=== PATIENT | male | born 1945 | race Caucasian/White ===

== ENCOUNTER → 2020-12-16 13:23 | Outpatient (CLI) | payer MEDICARE, SELFPAY ==
--- NOTE | 2020-12-16 13:30 | DI.CT.S_ITS ---
PROCEDURE: CT LUMBAR SPINE WO CON INDICATIONS: Other spondylosis with radiculopathy, lumbosacral TECHNIQUE: Noncontrast 3 mm thick sections acquired from the T12 level to the sacrum. Sagittal and coronal reformats were constructed. Additional 0.8 mm axial sections were performed through the lumbar spine. For radiation dose reduction, the following was used: automated exposure control. COMPARISON: [facility], CT, CT LUMBAR SPINE WITHOUT CONTRAST, 09/19/2020, 9:03. [facility], CR, XR LUMBAR SPINE 2 OR 3 VIEWS, 07/30/2020, 7:33. FINDINGS: Image quality: Excellent. Bones: There is normal bony alignment. No acute vertebral body compression fractures. No suspicious lytic or blastic bony lesions. No pars defects. T11-T12: Moderate loss of disc height is seen. Vacuum disc phenomenon is seen at this level. Moderate generalized disc bulge is seen. Bridging anterior osteophytes are seen. Moderate bilateral neural foraminal narrowing is seen. Mild central canal narrowing is seen. T12-L1: No significant abnormality is seen. L1-L2: There is mild loss of disc height. Moderate generalized disc bulge is seen. [facility] bilateral neural foraminal narrowing is seen. No significant central canal narrowing can be seen. L2-L3: Mild loss of disc height is seen. Bridging anterior/left osteophytes are seen. At least moderate disc bulge is seen. There is at least moderate bilateral neural foraminal narrowing seen, left worse than right. Mild to moderate central canal narrowing is seen. L3-L4: There is mild loss of disc height seen. There is at least moderate disc bulge seen. Mild facet joint hypertrophy is seen. Moderate to severe bilateral neural foraminal narrowing can be seen, left worse than right. Moderate central canal narrowing is seen. L4-L5: There is mild loss of disc height seen. At least moderate disc bulge is seen at this level. Partially bridging endplate osteophytes are seen on the left. There is moderate to severe bilateral neural foraminal narrowing seen at this level. Mild central canal narrowing is seen. L5-S1: Moderate loss of disc height is seen. Vacuum disc phenomenon is seen at this level. There is moderate to severe bilateral neural foraminal narrowing seen. No central canal narrowing is seen. Prior right hemilaminectomy change can be seen. Soft tissues: No retroperitoneal masses or hematomas. Visualized aorta is normal in caliber. Atherosclerotic calcification is noted. A small hiatal hernia is incidentally noted. A normal appendix is incidentally noted. IMPRESSION: Multiple levels of lumbar spine degenerative change are seen, which are not significantly progressed compared to the recent prior lumbar spine CT. Incidental note is made of: Small hiatal hernia Dictated by: Deshaun Kearney M.D. on 12/16/2020 at 14:59 Approved by: Deshaun Kearney M.D. on 12/16/2020 at 15:04
== END ==
PROVIDERS: Referring Provider Orthopaedic Surgery Orthopaedic Surgery of the Spine; Visit Provider Orthopaedic Surgery Orthopaedic Surgery of the Spine
DX: M47.27 Other spondylosis with radiculopathy, lumbosacral region (principal); M47.26 Other spondylosis with radiculopathy, lumbar region; K44.9 Diaphragmatic hernia without obstruction or gangrene
CPT/HCPCS: 72131

== ENCOUNTER → 2021-01-31 09:48 | Outpatient (CLI) | payer MEDICARE, SELFPAY ==
[2021-01-31 10:56] LABS: Add Manual Diff / Slide Review NO; Basophils Absolute Auto 0 /uL (0-100); Basophils Percent Auto 0.6 % (0-2); Eosinophils Absolute Auto 200 /uL (0-450); Eosinophils Percent Auto 3.4 % (2-4); Hematocrit 38.3 % (41-53); Hemoglobin 12.8 g/dL (13.5-17.5); Lymphocytes Absolute Auto 1300 /uL (1100-4500); Lymphocytes Percent Auto 17.9 % (25-40); Mean Corpuscular HGB Conc 33.5 % (30-36); Mean Corpuscular Hemoglobin 28.4 PG (26-34); Mean Corpuscular Volume 84.9 fL (80-100); Monocytes Absolute Auto 500 /uL (0-900); Monocytes Percent Auto 6.8 % (3-14); Neutrophils Absolute Auto 5000 /uL (1500-7000); Neutrophils Percent Auto 71.3 % (50-75); Platelet Count 206 X10^3/uL (150-400); Red Blood Cell Count 4.51 X10^6/uL (4.5-5.9)
[2021-01-31 11:27] LABS: Hemoglobin A1C% w Est Avg Glu 5.9 % (4.0-6.0)
[2021-01-31 13:15] LABS: Appearance Urine UA CLEAR; Bilirubin Urine UA NEGATIVE (NEGATIVE); Color Urine UA YELLOW; Glucose Urine UA NEGATIVE (Negative); Ketones Urine UA NEGATIVE (NEGATIVE); Leukocyte Esterase Urine UA NEGATIVE (NEGATIVE); Nitrite Urine UA NEGATIVE (Negative); Occult Blood Urine UA TRACE-LYSED (Negative); Protein Urine UA NEGATIVE (Negative); Specific Gravity Urine UA <=1.005 (1.000-1.035); Urobilinogen Urine UA 0.2 E.U./dL (0.2); pH Urine UA 6.5 (4.5-8.0)
[2021-01-31 13:30] LABS: BUN Creatinine Ratio 15.8 (6-22); Blood Urea Nitrogen 12 mg/dL (9-20); Calcium 9.5 mg/dL (8.4-10.2); Carbon Dioxide 27 mmol/L (22-32); Chloride 105 mmol/L (98-107); Estimated Glomerular Filt Rate > 60.0 mL/min (>60); Glucose 99 mg/dL (80-110); HEMOLYSIS < 15 (0-50); Potassium 4.7 mmol/L (3.4-5.1); Sodium 140 mmol/L (137-145)
[2021-01-31 13:32] LABS: Bacteria Urine None Seen; Culture Indicated Urine Cult Not Indicated; RBC Urine 0-1/HPF (0-5/HPF); Squamous Epithelial Cell Urine 0-1 /HPF (0-5/HPF); WBC Urine 0-1/HPF (0-5/HPF)
== END ==
PROVIDERS: Referring Provider Orthopaedic Surgery Orthopaedic Surgery of the Spine; Visit Provider Orthopaedic Surgery Orthopaedic Surgery of the Spine
DX: Z01.818 Encounter for other preprocedural examination (principal); R73.9 Hyperglycemia, unspecified; Z01.812 Encounter for preprocedural laboratory examination; N39.0 Urinary tract infection, site not specified
CPT/HCPCS: 36415; 80048; 81001; 83036; 85025; 93005; 93010

== ENCOUNTER → 2021-02-10 10:37 | Outpatient (CLI) | payer MEDICARE, SELFPAY ==
[2021-02-10 14:35] LABS: COVID19 -Nasal RAPID Negative (Negative)
== END ==
PROVIDERS: Referring Provider Nurse Practitioner Family; Visit Provider Nurse Practitioner Family
DX: Z20.822 Contact with and (suspected) exposure to COVID-19 (principal); Z01.812 Encounter for preprocedural laboratory examination
CPT/HCPCS: 87635; C9803

== ENCOUNTER 2021-02-12 06:20 | Inpatient (IN) | payer MEDICARE, SELFPAY ==
[2021-02-06 08:14] VITALS: BMI 25.1
[2021-02-12] VITALS (16 sets, daily range): BP systolic 119–163; BP diastolic 46–98; PULSE 79–107; RESP 10–18; TEMP 36.1–37.1; O2SAT 93–99; BMI 25.4
--- NOTE | 2021-02-12 | DI.RAD.S_ITS ---
PROCEDURE: XR LUMBAR SPINE 2-3V INDICATIONS: L3-4 L4-5 TLIF TECHNIQUE: 2 views of the lumbar spine were acquired. COMPARISON: [facility], CT, CT LUMBAR SPINE WO CON, 12/16/2020, 13:33. [facility], RF, LUMBAR TRANSFORAMINAL JED, 10/16/2020, 14:30. FINDINGS: 2 submitted intraoperative fluoroscopic images demonstrates posterior/interbody fusion at the L3-L4 and L4-L5 level with posterior fixation hardware and intervertebral disc spacers in expected position. IMPRESSION: Intraoperative fluoroscopic images demonstrating posterior/interbody fusion L3-L4 and L4-L5. Dictated by: Raúl FONTAINE Interpreted: Susan Bhatia MD on 02/12/2021 at 11:48 Transcribed by: SILAS on 02/12/2021 at 11:49 Approved by: Susan Bhatia M.D. on 02/12/2021 at 13:09
[2021-02-12] MEDS: ACETAMINOPHEN 325 MG TABLET 975 MG PO (07:23)
[2021-02-12] MEDS: LACTATED RINGERS 1,000 ML 42 ML IV ×2 (07:23→09:55)
--- NOTE | 2021-02-12 07:42 | PM.PREOP ---
Pre-operative Note COVID-19 COVID-19 status: Negative Result date/Date tested (Pos, Neg/Pending): 02/10/21 Interval Note History & Physical reviewed/Exam performed by Physician: Yes Changes to H&P: No
[2021-02-12] MEDS: CEFAZOLIN 1 GM VIAL 2 GM IV ×3 (08:07→23:38)
--- NOTE | 2021-02-12 08:42 | SUR.OPER ---
Prone on spine table, head in foam head support, padded chest and pelvic supports, gel pad at knees, lower legs supported by pillows; nipples, genitalia and toes free of pressure, gel pad placed between heels, arms secured on foam padded arm boards at <90 degrees abduction. Tape over blanket at thigh secured to table.
[2021-02-12] MEDS: BUPIVACAINE LIPOSOME 266 MG/20 ML VIAL INJ (08:50)
[2021-02-12] MEDS: BUPIVACAINE 0.25% (PF) VIAL 30 ML INJ (08:52)
[2021-02-12] MEDS: EPINEPHrine 1 MG/ML 0.15 MG SUBCUT (08:53)
--- NOTE | 2021-02-12 11:57 | P.OP_ITS ---
Operative Date/Time/Diagnoses Date of procedure: 02/12/21 Time of procedure: 08:00 Pre-op diagnosis: 1. L3-4, L4-5 spinal stenosis 2. L3-4, L4-5 spondylosis with radiculopathy Post-op diagnosis: same Procedure & Clinicians Procedure: 1. LL3-4, L4-5 Postero-lateral and posterior interbody fusion 2. L3-4, L4-5 interbody cage placement. 3. L3-4, L4-5 decompressive laminectomy with bilateral facetecomies 4. L3-4, L4-5 Posterior segmental instrumentation 5. Clements of bone marrow from iliac crest 6. Utilization of microsurgical technique and operating microscope 7. Robotic navigation assisted surgery Same procedure as scheduled: Yes Indications: Patient has been having chronic back pain and worsening lumbar radiculopathy. Patient failed multiple conservative management with worsening pain weakness and numbness in her lower extremity. Patient has been having difficulty performing activity of daily living. After discussing risks benefits of treatment options, patient elected proceed with surgery. Surgeon: Yeny Wayne Core Cutter: Thien Emanuel Click Yes if Unassisted: No Anesthesia Type: General Operative Notes Closure Type: primary Specimen(s): none sent Prosthetic devices, grafts, tissues, transplants, or devices: Globus CREO MIS screws, Rise cages Applied: catheter Estimated Blood Loss (mL): 100 Blood products transfused: none Procedure in detail: Patient was seen in the preoperative area. Risks and benefits of the surgery was discussed with the patient. Informed consent was obtained from the patient and placed in the chart. Surgical site was marked. Patient was taken to the operative room. General anesthesia was administered. Prophylactic antibiotic was given to the patient less than 30 min before the incision was made. Patient was placed into a prone position on the Aditya tab le. Patient's back was then prepped and draped in the sterile fashion. Time-out was performed at this time. After patient was prepped and draped, patient's PSIS was palpated and marked bilaterally. Small 1 cm incision was made over the PSIS for placement of the reference probes. Two trocar was placed into the PSIS 1 on each side. The reference probe was attached to the trocar of the reference apparatus. At this time the C-arm imaging was used to confirm AP and lateral of L3, L4-L5 vertebrae and merged the C-arm imaging using the Nexterra robotic navigation system with the CT of the lumbar spine. After successful merging was completed and confirmed, skin marker was used to laurent out the skin incision using the Nexterra robotic arm. Bilateral incision was made at this time. Pre templated trajectory was used and guided using the Nexterra robotic navigation system for bilateral L3 L4, L5 pedicle screw placement. This was done by using the robotic arm to guide the high-speed bur to make a cortical entry point. Next a drill was placed also using the robotic arm and guided using the navigation system drilling partially through bilateral L3, L4, L5 pedicles. Next L3, L4, L5 pedicle screws it was pre templated and measured was placed onto the power otr owner operator truck driver and inserted into the pedicles bilaterally. After all 6 screws were placed C-arm imaging was taken of both AP and lateral to confirm the placement. Excellent placement of the screws were confirmed and a matched precisely with the pre planned screw placement using the navigation system. MARs retractor was inserted using ActSocial[employer] guidence. Globus MARS retractors was placed inside the incision and docked onto the L3, L4 lamina. Using microsurgical technique and operating microscope, a L4, L5 laminectomy and L3-4, L4-5 facetectomy was performed using a Kerrison rongeur. Patient was found have severe lateral recess and neural foramen stenosis which was fully decompressed after the laminectomy facetectomy. More than 75% of the facets were removed during the process of decompression rendering L3-4, L4-5 level grossly unstable and required a fusion procedure at the same time. The disc space at L3-4, L4-5 was identified, and a total diskectomy was performed at L3- 4, L4-5 level. The endplates were decorticated using a rasp and shaver. The total diskectomy and decortication was performed at L3-4, L4-5 level in order to to accomplish a L3-4, L4-5 fusion. The local bone from the laminectomy and facetectomy was saved for local bone grafting. After the total diskectomy and decortication was completed, Trifecta bone graft material was combined with local bone that was harvested earlier. At this time, a separate skin is incision was made over the iliac crest. A Jamshidi needle was inserted into the iliac crest through a separate skin incision. 5 cc of bone marrow aspiration was obtained through the separate skin incision using a Jamshidi needle from the iliac crest. The bone marrow aspiration was combined with local bone and the Trifecta bone grafting material. The bone grafting material was placed into the L3-4, L4-5 interbody space along with expandable cages. One cage each was inserted into the L3-4 L4-5 interbody space along with bone graft material. The cage was expanded to its maximum height using the torque limiting screwdriver. The disc preparation as well as the cage insertion were also performed under navigation guidance. After the cage was placed, AP and lateral C-arm imaging was taken to confirm placement of the cage and excellent position was confirmed. Globus MARS retractor was inserted and docked onto the L3-4, L4-5 posterolateral gutter on the right side. Using the power drill, posterior-lateral decortication was performed at L3-4, L4-5 level until bleeding cortical bone was identified. The remaining bone grafting material was placed into the L3-4, L4-5 posterior lateral gutter he order to accomplish posterolateral fusion at the L3- 4, L4-5 level. At this time the tulips were attached to the L3, L4-L5 pedicle screw shanks. After measuring the length of the rods, they were inserted into the tulips of the pedicle screws and locked in place using locking caps and torque limiting screwdriver bilaterally. Total 6 caps and 2 titanium rods was used in order to complete the posterior instrumentation construct. After all the hardware was placed, and confirmed with AP and lateral C-arm imaging, the wound was then irrigated with sterile normal saline and packed with Ray-Eirn gauze for 3 min to accomplish hemostasis. After the gauze was removed the deep fascia was closed with #1 Vicryl suture. The subcutaneous layer was closed with 2-0 Vicryl. The skin was closed with skin tori. Patient tolerated the procedure well. There were no complications. Neuro monitoring system was used to monitor patient's neurologic status throughout entire procedure. There was no disturbance of the neural monitoring signals throughout the case. Complications: none Post-operative Condition: stable Disposition: PACU Plan for aftercare: Admit to inpatient hospital
[2021-02-12] MEDS: LORazepam 2 MG/ML INJ 0.25 MG IV (12:35)
[2021-02-12] MEDS: hydrOXYzine pamoate 25 MG CAPSULE PO (12:36)
[2021-02-12] MEDS: OXYCODONE IR 5 MG TABLET PO (12:36)
--- NOTE | 2021-02-12 13:53 | SUR.OPER ---
Late Entry Patient's glasses placed in hospital designated black glass case with patient label, given to Pre-op RN to place in patients belongings bag prior to moving patient to the Operating Room.
[2021-02-12] MEDS: SODIUM CHLORIDE 0.9% 1,000 ML 100 ML IV ×2 (13:57→23:47)
[2021-02-12] MEDS: OXYCODONE IR 5 MG TABLET 10 MG PO ×3 (15:41→23:38)
[2021-02-12] MEDS: HYDROMORPHONE 0.5 MG INJ IV (15:43)
[2021-02-12] MEDS: SENNOSIDES 8.6 MG TABLET 17.2 MG PO (20:07)
[2021-02-12] MEDS: DOCUSATE 100 MG CAPSULE PO (20:07)
[2021-02-12] MEDS: ATORVASTATIN 20 MG TABLET 80 MG PO (20:07)
[2021-02-12] MEDS: METOPROLOL IR 25 MG TABLET 12.5 MG PO (20:07)
[2021-02-12] MEDS: METFORMIN HCL 500 MG TABLET 1000 MG PO (20:07)
[2021-02-13] MEDS: OXYCODONE IR 5 MG TABLET 10 MG PO ×5 (02:55→18:30)
[2021-02-13 05:01] VITALS: BP 111/69; PULSE 97; RESP 18; TEMP 36.7; O2SAT 95
[2021-02-13 05:53] LABS: Hematocrit 33.1 % (41-53); Hemoglobin 10.8 g/dL (13.5-17.5)
--- NOTE | 2021-02-13 07:19 | PM.PNPO.1 ---
Subjective Subjective Date Patient Seen: 02/13/21 Time Patient Seen: 07:19 Interval history: The patient is complaining of moderate pain this morning. He denies fevers, chills or night sweats. No nausea or vomiting. He notes he has most of his pain in his low back near the incision. He is also having numbness down bilateral lower extremities, which is new after surgery. Exam Vital Signs (past 8 hours): - 02/12/21 23:45 02/13/21 05:01 Temperature 98.8 F 98.0 F Pulse Rate 97 H 97 H Respiratory Rate 18 18 Blood Pressure 130/79 111/69 Pulse Oximetry 93 95 Oxygen Delivery Method Nasal Cannula Oxygen Flow Rate 2 Narrative Exam Narrative: 75-year-old male, resting in bed, mild distress due to pain. Incision demonstrates bilateral bloody drainage at approximately 75% of the bandage. No surrounding erythema. Motor functions are intact in bilateral lower extremities. Sensation is grossly intact to light touch in bilateral lower extremities, although he notes his sensation is decreased somewhat. Both legs are warm and dry. SCDs were on and functioning. Bilateral calves are soft, nontender to palpation. Somewhat of an interesting affect. Objective Labs Result Diagrams: 02/13/21 05:20 Labs: Laboratory Results - last 24 hr 02/13/21 05:20 Hgb 10.8 L Hct 33.1 L PFSH Medical History Alcoholism CAD (coronary artery disease) Depression Diabetes mellitus, type 2 Diabetic retinopathy Former smoker Hearing impaired History of tremor HLD (hyperlipidemia) HTN (hypertension) Irregular heart rhythm Loss of vision NSTEMI (non-ST elevated myocardial infarction) (2018) Osteoarthritis of spine Radiculopathy Spinal stenosis of lumbar region at multiple levels Substance abuse Surgical History History of back surgery Hx of heart artery stent (2018) Hx of tonsillectomy Social History household members: none Smoking Status: Former smoker alcohol intake: former Assessment & Plan Post-op Postoperative Procedures: Procedures Operation Date: 02/12/21 07:45 Actual Procedure Side Surgeon p L3-4, L4-5 TLIF w/posterior instrumentation Yeny Wayne MD Postoperative day: 1 Postoperative status narrative: Progressing as expected status post L3-4, L4-5 TLIF Postoperative plan narrative: -MOBILIZE WITH PT -LIMIT BENDING, TWISTING, LIFTING. -DC HARRISON -CONTINUE WITH PAIN CONTROL REGIMEN -LIKELY DC HOME TOMORROW DUE TO PAIN ISSUES. THE PATIENT NOTES HIS BROTHER WILL BE HELPING HIM AT HOME AND HE HAS 2 STAIRS TO GET INTO HIS HOUSE. Quality VTE Deep Vein Thrombosis/Pulmonary Embolism Present on Admission: No
[2021-02-13 07:51] VITALS: BP 119/69; PULSE 97; RESP 18; TEMP 36.7; O2SAT 94
[2021-02-13] MEDS: METOPROLOL IR 25 MG TABLET 12.5 MG PO ×2 (08:42→21:44)
[2021-02-13] MEDS: METFORMIN HCL 500 MG TABLET 1000 MG PO ×2 (08:42→21:43)
[2021-02-13] MEDS: DOCUSATE 100 MG CAPSULE PO ×2 (08:43→21:43)
[2021-02-13] MEDS: INFLUENZA HD VACCINE 0.7 ML SYRINGE IM (08:48)
[2021-02-13] MEDS: SODIUM CHLORIDE 0.9% 1,000 ML 100 ML IV (08:48)
[2021-02-13] MEDS: HYDROMORPHONE 0.5 MG INJ IV (11:22)
[2021-02-13 12:00] VITALS: BP 107/61; PULSE 93; RESP 16; TEMP 36.3; O2SAT 96
--- NOTE | 2021-02-13 12:00 | PT.IIE ---
Current Diagnoses Other spondylosis with radiculopathy, lumbosacral region (02/12/21) Spinal stenosis, lumbar region without neurogenic claudication (02/12/21) Surgery Performed Operation Date: 02/12/21 07:45 Actual Procedures p L3-4, L4-5 TLIF w/posterior instrumentation - Yeny Wayne MD Medical History (Last Reviewed 02/13/21 @ 07:22 by Katharine Dorsey PA-C) Alcoholism CAD (coronary artery disease) Depression Diabetes mellitus, type 2 Diabetic retinopathy Former smoker Hearing impaired History of tremor HLD (hyperlipidemia) HTN (hypertension) Irregular heart rhythm Loss of vision NSTEMI (non-ST elevated myocardial infarction) (2018) Osteoarthritis of spine Radiculopathy Spinal stenosis of lumbar region at multiple levels Substance abuse Physical Therapy Inpatient Evaluation/Re-Eval M1 PT/OT-IP Prior Functional Status Start: 02/13/21 13:45 Freq: NEEDED Status: Active Protocol: Document 02/13/21 12:00 DLM (Rec: 02/13/21 14:22 DL [id number]) Medical Review Prior Functional Status Medical History Reviewed Yes Diet/Fluid Consistency Regular Communication WFL, hard of hearing Mobility and Gait Independent without device Activities of Daily Living and IADL's Independent Social History Household Members none Living Arrangements House Number of Floors (Floors) One Floor Number of Stairs To Enter/Railing? 2 steps without rail Home Equipment Front Wheel Walker Employment Status Retired Additional Social History Comment Pt plans for his Brother to help at home after surgery M2 PT-IP Current Condition Start: 02/13/21 13:45 Freq: NEEDED Status: Active Protocol: Document 02/13/21 12:00 DLM (Rec: 02/13/21 14:22 DL [id number]) Physical Therapy Current Condition Current Condition Evaluation Date 02/13/21 Treatment Diagnosis L3-5 TLIF with cage, impaired gait Onset Date 02/12/21 Precautions Lumbar Precautions Log Roll,No Twisting,Limit Bending,Lifting Restriction of 10 lbs,Gait Belt above Incisional Area M3 PT-IP Subjective Start: 02/13/21 13:45 Freq: NEEDED Status: Active Protocol: Document 02/13/21 12:00 DLM (Rec: 02/13/21 14:22 DL [id number]) Subjective Physical Therapy Visit Type Type Initial Evaluation Visit Start Time 11:20 Visit Stop Time 12:00 Total Visit Minutes 40 Number of REFURBISH TECHNICIAN Visits 0 Physical Therapy Visit Comments Patient Comments He agreed to get up this visit Patient Goals Be able to go home Therapy Pain Assessment Pain When Pain Assessed During Mobility Pain Present Pain Present Pain Reported Location Medial Back Intensity 3 Scale Used Numeric (0 - 10) Description Aching,Sharp,With Movement Pain Behaviors Facial Grimacing,Guarding Pain Management Techniques Modification of Treatment,Re- positioning,Timing of Activity with Medications M4 PT-IP Mobility and Gait Start: 02/13/21 13:45 Freq: NEEDED Status: Active Protocol: Document 02/13/21 12:00 DLM (Rec: 02/13/21 14:22 DLM [id number]) PT-Bed Mobility Assessment Rolling Type of Rolling Log Rolling Level of Assist Moderate Assistance Supine to Sit Supine to Sit Moderate Assistance Scooting Scooting to Edge of Bed Minimal Assistance PT-Transfer Assessment Sit to and From Stand Sit to and from Stand Moderate Assistance,Use of Upper Extremities Equipment Transfer Assistive Device Gait Belt,Front Wheeled Walker Transfers Transfer Destination Chair Transfer Technique Stand Step Pivot Transfer Ability Level of Assist Moderate Assistance,Use of Upper Extremities Comments Mobility Comments pt is tremulous with activity, he stands with very wide base of support, he has difficulty keeping knees fully extended in standing Gait Assessment Gait Gait Assistance Required: Minimum Assistance,Moderate Assistance Distance (Feet) 3 Assistive Devices Assistive Device Gait Belt,Front Wheeled Walker Gait Deviations General Gait Pattern Decreased Stride Length, Decreased Feet Clearance, Flexed Trunk,Step-to Gait Factors Limiting Gait Function Factors Limiting Gait Function Decreased Activity Tolerance, Decreased Strength, Incoordination,Limited Range of Motion,Pain,Poor Balance Comments Gait Comments Pt believed he could ambulate around the bed with FWW but when he attempted gait he could only manage a few feet before needing to sit to rest. PT-Balance Assessment Sitting Balance and Reactions Static Sitting Balance Ability Good Dynamic Sitting Balance Ability Good Standing Balance and Reactions Static Standing Balance Ability Fair Dynamic Standing Balance Ability Fair Device Used FWW M5 PT-IP Objective Assessments Start: 02/13/21 13:45 Freq: NEEDED Status: Active Protocol: Document 02/13/21 12:00 DLM (Rec: 02/13/21 14:22 DLM [id number]) Orientation Orientation/Cognition Level of Alertness Alert Orientation Name,Age,Birthday,Month,Year, Place,Situation Language Function Ability Hard of Hearing Safety Awareness Understands Safety Issues Memory Description Short Term Impaired Comments pt believes the pain medication is making it harder for him to think straight Gross Range of Motion Upper Extremity ROM Assessment Within Functional Limits Lower Extremity ROM Assessment Within Functional Limits Impairments spine limited by post-op pain and restrictions Strength Upper Extremity Strength Assessment Within Functional Limits Lower Extremity Strength Assessment Bilaterally Impaired Hip flexion 3-/5 Knee ext 3-/5 Ankle DF 5/5 Comments Strength Comments generalized functional weakness complicated by his back pain and incoordination Coordination Assessment Gross Coordination Gross Coordination Impaired Assessment Finger to Nose Test Moderate Impairment Foot Tapping Test Moderate Impairment Coordination Comments intension tremors, ataxic movement patterns Sensation Assessment Sensation Gross Sensation Right LE Impaired,Left LE Impaired Sensation Description Numbness Comments Sensation Comments pt reporting some numbness in LE's since surgery with right worse than left at this time Muscle Tone Muscle Tone WNL Yes M6 PT-IP Treatment Start: 02/13/21 13:45 Freq: NEEDED Status: Active Protocol: Document 02/13/21 12:00 DLM (Rec: 02/13/21 14:22 DLM [id number]) Physical Therapy Treatment Exercises Exercises Ankle Pumps Education Education Provided Precautions,Post-Op Packet, Safety Other Treatments Other Treatment Performed Pt up to recliner this visit with chair alarm in place, pt set-up for lunch, pt instructed to have nursing assist for all mobility Attempted to advance gait this visit but pt was unable. M7 PT-IP Assessment and Plan Start: 02/13/21 13:45 Freq: NEEDED Status: Active Protocol: Document 02/13/21 12:00 DLM (Rec: 02/13/21 14:22 DLM [id number]) PT Summary Assessment and Plan Potential Rehabilitation Potential Good Status of Condition at Evaluation Evolving Summary Impairments Pain,ROM,Strength,Balance, Coordination,Sensation, Cognition,Bed Mobility, Transfers,Gait,Activity Tolerance Assessment Summary Henry is alert and resting in bed. He has not been up since surgery. He agreed to get up this visit. Pt had IV Dilaudid just before this treatment to manage his pain. He was able to get up to a recliner and ambulate a few feet with FWW. He is very tremulous with activity. He has a wide base of support in standing and needs cuing to keep his feet inside of the FWW. He has difficulty taking functional steps for gait and fatigues quickly. He has alcantara catheter and 2 LPM of oxygen this visit. Pt does not need supplemental oxygen at baseline. Pt wants to discharge home with his Brother to assist him. He is not safe to discharge home at this time due to his limited mobility/gait. Will work towards his goal. He may need SNF if his progress is slow post-op. Will continue to assess for discharge planning each visit. He could benefit from OT eval and treat also to assist with his recovery. Goals Bed Mobility Goal Independent Transfer Goal Standby Assistance,Front Wheeled Walker Gait Goal Standby Assistance,Front Wheel Walker Gait Distance 150 feet Other Goals up and down 2 steps with min assist Days to Meet Goals 4 Frequency of Treatment Frequency Of Treatment Twice a Day Treatment Plan Physical Therapy Treatment Plan Bed Mobility Training,Transfer Training,Gait Training, Therapeutic Exercise,Balance Retraining,Post Op Education, Discharge Planning,Hot or Cold Pack,Neuromuscular Re-ed, Coordination Retraining Recommendations To Nursing Amount of Assist Needed 1 Person Assist Discharge Recommendations PT Discharge Recommendations Home vs SNF Other Discharge Recommendations pt wants home with is Brother but pt needs to be able to ambulate to safely return home Transportation Needs at Discharge Private Vehicle,Wheelchair/ Cabulance
--- NOTE | 2021-02-13 15:30 | CM.IDA ---
Initial DCP Assessment Note Pt is a 75 yo male, resident of [place], now POD#1 from Spinal surgery w/Dr Wayne PCP: Ivis [place] Payer: [facility] Met w/patient to introduce role and review DCP. Patient indp. at baseline. Patient appears to be very uncomfortable, RN Mariann aware, RN explains PT just had gotten patient to his chair. Patient plans to DC home w/his brother and son to assist once home. Will follow closely for coordination of DCP in case any DC needs or concerns arise ELIANA Kruse Discharge Planning/Care Management CM Discharge Assessment Start: 02/13/21 15:20 Freq: Status: Active Protocol: Document 02/13/21 15:20 ALEXIS (Rec: 02/13/21 15:29 [facility]LEXIS [id number]) Discharge Planning Assessment Assigned Nuclear Radiologist ELIANA Kline DPOA/Assigned Designee Name brother Bernabe Contact Information [phone] Advance Directives? Yes Advance Directives on File No History Provided By Patient Prior Living Arrangements House Household Members none Type of transporation used prior to Drives own vehicle admit Independent with ADL's Yes Is patient alert and oriented? Yes: [place] Comment Home vs SNF according to PT, POD#1 Barriers to Discharge Yes Comment So far, slow to progress d/t pain Comment Pending progress. Patient wants to return home w/family to assist Whiteboard Updated in Patient Room with Yes name and ext. # of Nuclear Radiologist
--- NOTE | 2021-02-13 16:05 | OT.IP.EVAL ---
Current Diagnoses Other spondylosis with radiculopathy, lumbosacral region (02/12/21) Spinal stenosis, lumbar region without neurogenic claudication (02/12/21) Surgery Performed Operation Date: 02/12/21 07:45 Actual Procedures p L3-4, L4-5 TLIF w/posterior instrumentation - Yeny Wayne MD Past Medical History (Last Reviewed 02/13/21 @ 07:22 by Katharine Dorsey PA-C) Alcoholism CAD (coronary artery disease) Depression Diabetes mellitus, type 2 Diabetic retinopathy Former smoker Hearing impaired History of back surgery History of tremor HLD (hyperlipidemia) HTN (hypertension) Hx of heart artery stent (2017) Hx of tonsillectomy Irregular heart rhythm Loss of vision NSTEMI (non-ST elevated myocardial infarction) (2018) Osteoarthritis of spine Radiculopathy Spinal stenosis of lumbar region at multiple levels Substance abuse Surgical History (Last Reviewed 02/13/21 @ 07:22 by Katharine Dorsey PA-C) History of back surgery Hx of heart artery stent (2017) Hx of tonsillectomy Occupational Therapy Inpatient Evaluation/Re-Eval M1 PT/OT-IP Prior Functional Status Start: 02/13/21 13:45 Freq: NEEDED Status: Active Protocol: Document 02/13/21 17:26 [facility] (Rec: 02/13/21 17:53 [facility] [id number]) Medical Review Prior Functional Status Medical History Reviewed Yes Diet/Fluid Consistency Regular Communication WFL, hard of hearing Mobility and Gait Independent without device Activities of Daily Living and IADL's Independent with all ADL, IADL , and able to do bills and meds on his own. Social History Household Members none Living Arrangements House Number of Floors (Floors) One Floor Number of Stairs To Enter/Railing? 2 steps without rail Home Equipment Front Wheel Walker Employment Status Retired Additional Social History Comment Pt plans for his Brother to stay and help at home after surgery. When asked how long his brother will stay with him , pt states, until I get sick of him and kick him out. M2 OT-IP Current Condition Start: 02/13/21 17:25 Freq: Status: Active Protocol: Document 02/13/21 17:26 [facility] (Rec: 02/13/21 17:53 [facility] [id number]) Occupational Therapy Current Condition Current Condition Evaluation Date 02/13/21 Treatment Diagnosis S/p L3-4, L4-5 TLIF with posterior instr Diagnosis Onset Date 02/12/21 M3 OT- IP Subjective and Pain Start: 02/13/21 17:25 Freq: Status: Active Protocol: Document 02/13/21 17:26 [facility] (Rec: 02/13/21 17:53 [facility] [id number]) OT- Subjective Occupational Therapy Visit Type Type Initial Evaluation Visit Start Time 16:05 Visit Stop Time 16:43 Total Visit Minutes 38 Occupational Therapy Visit Comments Patient Comments Pt agreed to get up with OT and COLUMNIST. Patient/Caregiver Goals TO go home. OT Pain Assessment Pain When Pain Assessed At Rest Pain Present Pain Present Pain Reported Location Medial Back Intensity 2 Scale Used Numeric (0 - 10) M4 OT- IP ADL's Start: 02/13/21 17:25 Freq: Status: Active Protocol: Document 02/13/21 17:26 [facility] (Rec: 02/13/21 17:53 [facility] [id number]) OT [id number] Comments OT Self-Feeding Comments Not at meal time. OT ADL-Grooming Comments OT Grooming Comments Not performed. OT ADL-Oral Care Comments Oral Care Comments Educated best to spit into a cup or hinge at his hips in order to best follow his back precautions. OT ADL-Dressing General Eval Lower Body Dressing Ability Maximum Assistance Comments OT Dressing Comments MAX AX for socks. Initiated showing and talking to pt regarding LB dressing equipment needs. OT ADL-Toileting Comments OT Toileting Comments Pt did not have to use the toilet at this time. OT ADL-Bathing Comments OT Bathing Comments NOt performed. M5 OT- IP IADL's Start: 02/13/21 17:25 Freq: Status: Active Protocol: Document 02/13/21 17:26 [facility] (Rec: 02/13/21 17:53 [facility] [id number]) OT-Instrumental Activities of Daily Living Home Safety Awareness Home Safety Comments Pt a bit groggy from medications and would be best to to have someone assist with his needs. M6 OT- IP Functional Cognition Start: 02/13/21 17:25 Freq: Status: Active Protocol: Document 02/13/21 17:26 [facility] (Rec: 02/13/21 17:53 [facility] [id number]) Cognitive Factors Limiting Selfcare Function Cognitive Ability Level of Alertness Alert,Drowsy Patient Orientation Name,Place,Situation Attention Span Ability Capable of Focused Attention, Capable of Sustained Attention Ability to Follow Commands Able to Follow One Step Commands Safety Awareness Decreased Recall of Precautions,Decreased Ability to Apply Precautions Cognitive Comments Cognitive Assessment Comments Pt a bit groggy from medications and needing vc for safety and for FWW safety. Pt tends to keep the FWW either too close or far away from him. OT- Vision and Hearing OT- Vision Assessment Visual Acuity Glasses For Reading Vision Assessment Comments Pt is SAMISH per daughter. M7 OT- IP Mobility and Balance Start: 02/13/21 17:25 Freq: Status: Active Protocol: Document 02/13/21 17:26 [facility] (Rec: 02/13/21 17:53 [facility] [id number]) OT- Bed Mobility Assessment Rolling Type of Rolling Roll to Right Level of Assistance Maximum Assistance,1 Person Assistance,Bedrails Scooting Scooting to Edge of Bed Contact Guard Assistance,1 Person Assistance OT-Transfer Assessment Sit to and From Stand Sit to and from Stand Moderate Assistance,1 Person Assistance Transfers Transfer Ability Moderate Assistance,1 Person Assistance Technique Transfer Destination Bed,Chair Transfer Technique Stand Step Pivot Devices Transfer Assistive Devices Gait Belt,Front Wheeled Walker Comments Mobility Comments MAX A to help with log rolling and MODA to help stand to FWW and MODA for transfer and another person to assist with IV pole management needs. Pt tends to have a wide base of support when on his feet. OT- Balance Assessment Sitting Balance and Reactions Static Sitting Balance Ability Good Dynamic Sitting Balance Ability Fair Standing Balance and Reactions Static Standing Balance Ability Fair M8 OT- IP Objective Assessments Start: 02/13/21 17:25 Freq: Status: Active Protocol: Document 02/13/21 17:26 [facility] (Rec: 02/13/21 17:53 [facility] [id number]) OT Gross Range of Motion Upper Extremity Range of Motion Assessment Within Functional Limits OT Strength Upper Extremity Strength Assessment Within Functional Limits OT-Muscle Tone Assessment Muscle Tone WNL Yes M9 OT- IP Assessment and Plan Start: 02/13/21 17:25 Freq: Status: Active Protocol: Document 02/13/21 17:26 [facility] (Rec: 02/13/21 17:53 [facility] [id number]) OT Summary Assessment and Plan Potential Rehabilitation Potential Good Analytic Complexity at Evaluation Low Summary OT Impairments Pain,Balance,Functional Cognition,Functional Mobility, Grooming,Dressing,Toileting, Bathing,Toilet Transfers, Shower Transfers,Activity Tolerance Progress Towards Goals Slow Progress due to Pain,Slow Progress due to Activity Tolerance,Slow Progress due to Cognition Assessment Summary Pt low complexity and main barriers are pain, a bit groggy , and needing assist for all mobility and Adl needs at this time. Pt states his brother will stay with him upon discharge. Pt's daughter at the front end alignment specialist to see the pt and surprised that pt wanting his brother to come for training and that she feel that he will just want to things for himself. When asking pt's the daughter if she was going to stay and assist the pt , she was vague whether she was going to assist and that she was going to talk to her uncle . As of now caregiver training set up for 11AM on with pt's brotherLeif. Pending caregiver training home with 24/7 available assist versus possible short skilled rehab. Goals Self-Feeding Goal Independent Grooming Goal Independent Dressing Goal Independent Toileting Goal Independent Bathing Goal Independent Toilet Transfer Goal Independent Shower Transfer Goal Independent Patient/Caregiver Education Goal Caregiver Independent Assisting Patient Days to Meet Goals 15 Frequency of Treatment Frequency Of Treatment Once a Day Treatment Plan OT Treatment Plan ADL Training,Functional Cognition Training,Functional Mobility,Patient/Family Education,Discharge Planning Other Treatment Recommendations and Next caregiver training Treatment Focus Discharge Recommendations OT Discharge Recommendations Home with 24/7 Assist Available,SNF Rehab,Home vs SNF Home Equipment Needs shower chair versus tub bench Transportation Needs at Discharge Private Vehicle,Wheelchair/ Cabulance
--- NOTE | 2021-02-13 16:37 | PT.IPTN ---
Current Diagnoses Other spondylosis with radiculopathy, lumbosacral region (02/12/21) Spinal stenosis, lumbar region without neurogenic claudication (02/12/21) Surgery Performed Operation Date: 02/12/21 07:45 Actual Procedures p L3-4, L4-5 TLIF w/posterior instrumentation - Yeny Wayne MD Physical Therapy Treatment Note M2 PT-IP Current Condition Start: 02/13/21 13:45 Freq: NEEDED Status: Active Protocol: Document 02/13/21 12:00 [facility] (Rec: 02/13/21 14:22 [facility] [id number]) Physical Therapy Current Condition Current Condition Evaluation Date 02/13/21 Treatment Diagnosis L3-5 TLIF with cage, impaired gait Onset Date 02/12/21 Precautions Lumbar Precautions Log Roll,No Twisting,Limit Bending,Lifting Restriction of 10 lbs,Gait Belt above Incisional Area M3 PT-IP Subjective Start: 02/13/21 13:45 Freq: NEEDED Status: Active Protocol: Document 02/13/21 16:14 [facility] (Rec: 02/13/21 16:56 [facility] [id number]) Subjective Physical Therapy Visit Type Type Treatment Note Visit Start Time 16:14 Visit Stop Time 16:37 Total Visit Minutes 23 Notes Co-treat with OT for safety Number of PRECISION LENS GRINDER APPRENTICE Visits 1 Physical Therapy Visit Comments Patient Comments Pt agreed to get up to chair. Patient Goals Be able to go home Therapy Pain Assessment Pain When Pain Assessed During Mobility Pain Present Pain Present Pain Reported Location Medial Back Intensity 3 Scale Used Numeric (0 - 10) Pain Behaviors Facial Grimacing,Moaning, Restlessness,Wincing Pain Management Techniques Modification of Treatment,Re- positioning,Timing of Activity with Medications M4 PT-IP Mobility and Gait Start: 02/13/21 13:45 Freq: NEEDED Status: Active Protocol: Document 02/13/21 16:14 [facility] (Rec: 02/13/21 16:56 [facility] [id number]) PT-Bed Mobility Assessment Rolling Type of Rolling Log Rolling Level of Assist Moderate Assistance Supine to Sit Supine to Sit Maximum Assistance,1 Person Assistance Scooting Scooting to Edge of Bed Contact Guard Assistance PT-Transfer Assessment Sit to and From Stand Sit to and from Stand Moderate Assistance,1 Person Assistance,Use of Upper Extremities Equipment Transfer Assistive Device Gait Belt,Front Wheeled Walker Transfers Transfer Destination Chair Transfer Technique ambulated with FWW Transfer Ability Level of Assist Moderate Assistance,1 Person Assistance,Use of Upper Extremities Comments Mobility Comments Pt ambulate w/o knee flex but continues to have WBOS and requires cues for walker management and placement. Gait Assessment Gait Gait Assistance Required: Moderate Assistance,1 Person Assist Distance (Feet) 15 Able to Maintain Weight Bearing Status Yes During Gait Assistive Devices Assistive Device Gait Belt,Front Wheeled Walker Orthotic/Prosthetic Devices or Brace: No Gait Deviations General Gait Pattern Decreased Stride Length, Decreased Feet Clearance, Flexed Trunk,Step-to Gait Factors Limiting Gait Function Factors Limiting Gait Function Decreased Activity Tolerance, Decreased Strength, Incoordination,Limited Range of Motion,Pain,Poor Balance Comments Gait Comments Pt able to ambulate around bed to chair. Stair Climbing Assessment Comments Stair Climbing Comments needs to climb 2 steps w/o rail before d/c M5 PT-IP Objective Assessments Start: 02/13/21 13:45 Freq: NEEDED Status: Active Protocol: Document 02/13/21 12:00 [facility] (Rec: 02/13/21 14:22 [facility] [id number]) Orientation Orientation/Cognition Level of Alertness Alert Orientation Name,Age,Birthday,Month,Year, Place,Situation Language Function Ability Hard of Hearing Safety Awareness Understands Safety Issues Memory Description Short Term Impaired Comments pt believes the pain medication is making it harder for him to think straight Gross Range of Motion Upper Extremity ROM Assessment Within Functional Limits Lower Extremity ROM Assessment Within Functional Limits Impairments spine limited by post-op pain and restrictions Strength Upper Extremity Strength Assessment Within Functional Limits Lower Extremity Strength Assessment Bilaterally Impaired Hip flexion 3-/5 Knee ext 3-/5 Ankle DF 5/5 Comments Strength Comments generalized functional weakness complicated by his back pain and incoordination Coordination Assessment Gross Coordination Gross Coordination Impaired Assessment Finger to Nose Test Moderate Impairment Foot Tapping Test Moderate Impairment Coordination Comments intension tremors, ataxic movement patterns Sensation Assessment Sensation Gross Sensation Right LE Impaired,Left LE Impaired Sensation Description Numbness Comments Sensation Comments pt reporting some numbness in LE's since surgery with right worse than left at this time Muscle Tone Muscle Tone WNL Yes M6 PT-IP Treatment Start: 02/13/21 13:45 Freq: NEEDED Status: Active Protocol: Document 02/13/21 16:14 [facility] (Rec: 02/13/21 16:56 [facility] [id number]) Physical Therapy Treatment Exercises Exercises Ankle Pumps Education Education Provided Precautions Other Treatments Other Treatment Performed Pt recall 2/3 back precautions . M7 PT-IP Assessment and Plan Start: 02/13/21 13:45 Freq: NEEDED Status: Active Protocol: Document 02/13/21 16:14 [facility] (Rec: 02/13/21 16:56 [facility] [id number]) PT Summary Assessment and Plan Potential Rehabilitation Potential Good Status of Condition at Evaluation Evolving Summary Impairments Pain,ROM,Strength,Balance, Coordination,Sensation, Cognition,Bed Mobility, Transfers,Gait,Activity Tolerance Assessment Summary Pt improving with gait requiring Mod A and assist with walker management and IV pole. Pt uses WBOS and requires cues for walker management for safety. Pt improved with step sequencing during ambulaion of ~15ft w/ FWW. Pt would like to d/c home with brother Leif to assist him, however pt may require SNF rehab depending on pt's progress. Pt's brother scheduled for CG training tomorrow at 11:00. Goals Bed Mobility Goal Independent Transfer Goal Standby Assistance,Front Wheeled Walker Gait Goal Standby Assistance,Front Wheel Walker Gait Distance 150 feet Other Goals up and down 2 steps with min assist Days to Meet Goals 4 Frequency of Treatment Frequency Of Treatment Twice a Day Treatment Plan Physical Therapy Treatment Plan Bed Mobility Training,Transfer Training,Gait Training, Therapeutic Exercise,Balance Retraining,Post Op Education, Discharge Planning,Hot or Cold Pack,Neuromuscular Re-ed, Coordination Retraining Recommendations To Nursing Amount of Assist Needed 1 Person Assist Discharge Recommendations PT Discharge Recommendations Home vs SNF Other Discharge Recommendations pt wants home with is Brother but pt needs to be able to ambulate to safely return home Transportation Needs at Discharge Private Vehicle,Wheelchair/ Cabulance
[2021-02-13 16:45] VITALS: BP 132/66; PULSE 89; RESP 17; TEMP 36.7; O2SAT 93
[2021-02-13 20:00] VITALS: BP 117/67; PULSE 97; RESP 20; TEMP 36.5; O2SAT 96
[2021-02-13] MEDS: SENNOSIDES 8.6 MG TABLET 17.2 MG PO (21:43)
[2021-02-13] MEDS: ATORVASTATIN 20 MG TABLET 80 MG PO (21:43)
[2021-02-14 01:00] VITALS: BP 121/71; PULSE 89; RESP 16; TEMP 36.4; O2SAT 98
[2021-02-14] MEDS: OXYCODONE IR 5 MG TABLET 10 MG PO ×2 (02:08→10:03)
[2021-02-14] MEDS: ACETAMINOPHEN 325 MG TABLET 650 MG PO (02:09)
[2021-02-14] MEDS: hydrOXYzine pamoate 25 MG CAPSULE PO ×2 (02:09→08:34)
[2021-02-14 05:33] VITALS: BP 113/68; PULSE 81; RESP 16; TEMP 36.4; O2SAT 95
--- NOTE | 2021-02-14 07:26 | P.PN_ITS ---
Subjective Subjective Date Patient Seen: 02/14/21 Time Patient Seen: 07:27 Interval history: Pain is moderate. Denies fever or chills. No nausea vomiting. Exam Vital Signs (past 8 hours): - 02/14/21 01:00 02/14/21 05:33 Temperature 97.6 F 97.6 F Pulse Rate 89 81 Respiratory Rate 16 16 Blood Pressure 121/71 113/68 Pulse Oximetry 98 95 Oxygen Delivery Method Room Air Oxygen Flow Rate 2 Narrative Exam Narrative: 75-year-old male resting comfortably in bed in no apparent distress. Lumbar dressing is Clean, dry, intact.. Motor functions intact distal bilateral lower extremities. Sensation grossly intact to light touch bilateral lower extremities. Objective Labs Result Diagrams: 02/13/21 05:20 [facility] Medical History Alcoholism CAD (coronary artery disease) Depression Diabetes mellitus, type 2 Diabetic retinopathy Former smoker Hearing impaired History of tremor HLD (hyperlipidemia) HTN (hypertension) Irregular heart rhythm Loss of vision NSTEMI (non-ST elevated myocardial infarction) (2018) Osteoarthritis of spine Radiculopathy Spinal stenosis of lumbar region at multiple levels Substance abuse Surgical History History of back surgery Hx of heart artery stent (2018) Hx of tonsillectomy Social History household members: none Smoking Status: Former smoker alcohol intake: former Assessment & Plan Post-op Postoperative Procedures: Procedures Operation Date: 02/12/21 07:45 Actual Procedure Side Surgeon p L3-4, L4-5 TLIF w/posterior instrumentation Yeny Wayne MD Postoperative status narrative: Stable Postoperative plan narrative: Mobilize with physical therapy. Limit bending, twisting, lifting. We patient is 1 person assist in physical therapy has recommended home versus usp facility. At this time he is not ambulating well enough to be able to return home safely. Quality VTE Deep Vein Thrombosis/Pulmonary Embolism Present on Admission: No
[2021-02-14 08:00] VITALS: BP 110/73; PULSE 88; RESP 19; TEMP 36.7; O2SAT 95
[2021-02-14] MEDS: HYDROMORPHONE 0.5 MG INJ IV (08:31)
[2021-02-14] MEDS: METFORMIN HCL 500 MG TABLET 1000 MG PO (08:34)
[2021-02-14] MEDS: DOCUSATE 100 MG CAPSULE PO (08:34)
[2021-02-14] MEDS: METOPROLOL IR 25 MG TABLET 12.5 MG PO (08:35)
--- NOTE | 2021-02-14 11:23 | PT.IPTN ---
Current Diagnoses Other spondylosis with radiculopathy, lumbosacral region (02/12/21) Spinal stenosis, lumbar region without neurogenic claudication (02/12/21) Surgery Performed Operation Date: 02/12/21 07:45 Actual Procedures p L3-4, L4-5 TLIF w/posterior instrumentation - Yeny Wayne MD Physical Therapy Treatment Note M2 PT-IP Current Condition Start: 02/13/21 13:45 Freq: NEEDED Status: Active Protocol: Document 02/13/21 12:00 DLM (Rec: 02/13/21 14:22 DLM [id number]) Physical Therapy Current Condition Current Condition Evaluation Date 02/13/21 Treatment Diagnosis L3-5 TLIF with cage, impaired gait Onset Date 02/12/21 Precautions Lumbar Precautions Log Roll,No Twisting,Limit Bending,Lifting Restriction of 10 lbs,Gait Belt above Incisional Area M3 PT-IP Subjective Start: 02/13/21 13:45 Freq: NEEDED Status: Active Protocol: Document 02/14/21 10:57 CLB (Rec: 02/14/21 11:49 CLB [id number]) Subjective Physical Therapy Visit Type Type Treatment Note Visit Start Time 10:57 Visit Stop Time 11:23 Total Visit Minutes 26 Notes Brother Leif present for CG training. Number of HABILITATION SPECIALIST Visits 2 Physical Therapy Visit Comments Patient Comments Pt willing to work with brother for CG training Patient Goals Be able to go home Therapy Pain Assessment Pain When Pain Assessed During Mobility Pain Present Pain Present Pain Reported Location Medial Back Intensity 3 Scale Used Numeric (0 - 10) Pain Behaviors Facial Grimacing,Wincing Pain Management Techniques Modification of Treatment,Re- positioning,Timing of Activity with Medications M4 PT-IP Mobility and Gait Start: 02/13/21 13:45 Freq: NEEDED Status: Active Protocol: Document 02/14/21 10:57 CLB (Rec: 02/14/21 11:49 CLB [id number]) PT-Bed Mobility Assessment Rolling Type of Rolling Log Rolling Level of Assist Standby Assistance,1 Person Assistance Supine to Sit Supine to Sit Standby Assistance,1 Person Assistance Sit to Supine Sit to Supine Minimal Assistance,1 Person Assistance Scooting Scooting to Edge of Bed Standby Assistance PT-Transfer Assessment Sit to and From Stand Sit to and from Stand Contact Guard Assistance,1 Person Assistance,Use of Upper Extremities Equipment Transfer Assistive Device Gait Belt,Front Wheeled Walker Transfers Transfer Destination Bed,Chair Transfer Technique ambulated with FWW Transfer Ability Level of Assist Contact Guard Assistance,1 Person Assistance,Use of Upper Extremities Comments Mobility Comments Pt in chair upon arrival and brother Leif present. Instructed pt's brother in donning GB, pt scooted forward to EOC and stood with Leif providing CGA. Pt ambulated ~ 15ft to bedside with Leif providing CGA. Pt sat on bed and Leif assisted pt's legs onto bed and guided legs during LR. Pt able to reposition in bed. Pt then performed LR to right sitting on EOB from sidelying SBA, pt' s brother assisted him one more time through LR>sidelying >supiine then pt able to get back to sitting SBA. Pt stood from bed CGA and ambulated back to chair ~15ft. After demonstration on platform step pt stood with assist of brother and ambulated to stair in room. Pt climbed up/down one platform step with brother providing CGA. Once down step and pt was turning pt had one LOB which he was able to self correct. Pt brother provided CGA during gait back to chair. Pt's brother is able to assist him with good understanding of pt back precautions. Pt left with OT for further CG training. Gait Assessment Gait Gait Assistance Required: Contact Guard Assist,1 Person Assist Distance (Feet) 45 Able to Maintain Weight Bearing Status Yes During Gait Assistive Devices Assistive Device Gait Belt,Front Wheeled Walker Orthotic/Prosthetic Devices or Brace: No Gait Deviations General Gait Pattern Decreased Stride Length, Decreased Feet Clearance, Flexed Trunk,Step-to Gait Factors Limiting Gait Function Factors Limiting Gait Function Decreased Activity Tolerance, Decreased Strength, Incoordination,Limited Range of Motion,Pain,Poor Balance Comments Gait Comments See mobility comments Stair Climbing Assessment Evaluation Level of Assist On Stairs Contact Guard Assistance,1 Person Assistance Devices Stair Climbing Assistive Devices Front Wheel Walker Technique/Endurance Stair Climbing Direction Ascend and Descend Stair Climbing Technique Step to Step Number of Steps Climbed 1 Stair Climbing Set # Repetitions (reps) 1 PT-Balance Assessment Sitting Balance and Reactions Static Sitting Balance Ability Good Dynamic Sitting Balance Ability Good Standing Balance and Reactions Static Standing Balance Ability Fair Dynamic Standing Balance Ability Fair Device Used FWW M5 PT-IP Objective Assessments Start: 02/13/21 13:45 Freq: NEEDED Status: Active Protocol: Document 02/13/21 12:00 DLM (Rec: 02/13/21 14:22 DLM [id number]) Orientation Orientation/Cognition Level of Alertness Alert Orientation Name,Age,Birthday,Month,Year, Place,Situation Language Function Ability Hard of Hearing Safety Awareness Understands Safety Issues Memory Description Short Term Impaired Comments pt believes the pain medication is making it harder for him to think straight Gross Range of Motion Upper Extremity ROM Assessment Within Functional Limits Lower Extremity ROM Assessment Within Functional Limits Impairments spine limited by post-op pain and restrictions Strength Upper Extremity Strength Assessment Within Functional Limits Lower Extremity Strength Assessment Bilaterally Impaired Hip flexion 3-/5 Knee ext 3-/5 Ankle DF 5/5 Comments Strength Comments generalized functional weakness complicated by his back pain and incoordination Coordination Assessment Gross Coordination Gross Coordination Impaired Assessment Finger to Nose Test Moderate Impairment Foot Tapping Test Moderate Impairment Coordination Comments intension tremors, ataxic movement patterns Sensation Assessment Sensation Gross Sensation Right LE Impaired,Left LE Impaired Sensation Description Numbness Comments Sensation Comments pt reporting some numbness in LE's since surgery with right worse than left at this time Muscle Tone Muscle Tone WNL Yes M6 PT-IP Treatment Start: 02/13/21 13:45 Freq: NEEDED Status: Active Protocol: Document 02/13/21 16:14 CLB (Rec: 02/13/21 16:56 CLB [id number]) Physical Therapy Treatment Exercises Exercises Ankle Pumps Education Education Provided Precautions Other Treatments Other Treatment Performed Pt recall 2/3 back precautions . M7 PT-IP Assessment and Plan Start: 02/13/21 13:45 Freq: NEEDED Status: Active Protocol: Document 02/14/21 10:57 CLB (Rec: 02/14/21 11:49 CLB [id number]) PT Summary Assessment and Plan Potential Rehabilitation Potential Good Status of Condition at Evaluation Evolving Summary Impairments Pain,ROM,Strength,Balance, Coordination,Sensation, Cognition,Bed Mobility, Transfers,Gait,Activity Tolerance Progress Towards Goals Progressing Toward Goals Assessment Summary Pt continues to improve with all mobility and brother Leif is able to appropriate assist pt with CGA for sit<>stand, gait and stair climbing, brothalphonse is able to assist pt with Min A of BLE onto bed during bed mobility. Pt plans to d/c home with brother to assist him at home as long as is needed. Pt seem able to d/c home with brother's assist. Goals Bed Mobility Goal Independent Transfer Goal Standby Assistance,Front Wheeled Walker Gait Goal Standby Assistance,Front Wheel Walker Gait Distance 150 feet Other Goals up and down 2 steps with min assist Days to Meet Goals 4 Frequency of Treatment Frequency Of Treatment Twice a Day Treatment Plan Physical Therapy Treatment Plan Bed Mobility Training,Transfer Training,Gait Training, Therapeutic Exercise,Balance Retraining,Post Op Education, Discharge Planning,Hot or Cold Pack,Neuromuscular Re-ed, Coordination Retraining Precautions Lumbar Precautions Log Roll,No Twisting,Limit Bending,Lifting Restriction of 10 lbs,Gait Belt above Incisional Area Recommendations To Nursing Amount of Assist Needed 1 Person Assist Discharge Recommendations PT Discharge Recommendations Home with 07/12 Assist Available Transportation Needs at Discharge Private Vehicle
--- NOTE | 2021-02-14 11:49 | OT.IP.TRT ---
Current Diagnoses Other spondylosis with radiculopathy, lumbosacral region (02/12/21) Spinal stenosis, lumbar region without neurogenic claudication (02/12/21) Surgery Performed Operation Date: 02/12/21 07:45 Actual Procedures p L3-4, L4-5 TLIF w/posterior instrumentation - Yeny Wayne MD Occupational Therapy Treatment Note M2 OT-IP Current Condition Start: 02/13/21 17:25 Freq: Status: Active Protocol: Document 02/13/21 17:26 [facility] (Rec: 02/13/21 17:53 [facility] [id number]) Occupational Therapy Current Condition Current Condition Evaluation Date 02/13/21 Treatment Diagnosis S/p L3-4, L4-5 TLIF with posterior instr Diagnosis Onset Date 02/12/21 M3 OT- IP Subjective and Pain Start: 02/13/21 17:25 Freq: Status: Active Protocol: Document 02/14/21 11:57 [facility] (Rec: 02/14/21 12:07 [facility] [id number]) OT- Subjective Occupational Therapy Visit Type Type Treatment Note Visit Start Time 10:55 Visit Stop Time 11:49 Total Visit Minutes 54 Occupational Therapy Visit Comments Patient Comments SENIOR DATA WAREHOUSE DEVELOPER, brother, pt and OT present for caregiver training needs. Patient/Caregiver Goals TO go home. OT Pain Assessment Pain When Pain Assessed During Mobility Pain Present Pain Present Pain Reported Location Medial Back Intensity 2 Scale Used Numeric (0 - 10) M4 OT- IP ADL's Start: 02/13/21 17:25 Freq: Status: Active Protocol: Document 02/14/21 11:57 [facility] (Rec: 02/14/21 12:07 [facility] [id number]) OT [id number] Comments OT Self-Feeding Comments Not at meal time. OT ADL-Grooming Comments OT Grooming Comments Not performed. OT ADL-Dressing General Eval Lower Body Dressing Ability Moderate Assistance Comments OT Dressing Comments Educated pt and brother and issued LB dressing equipment and able to practice use for phlebotomist prn. Pt's brother well aware to assist pt for all needs. OT ADL-Toileting Comments OT Toileting Comments [place] just taken out. Suggested for pt to take the urinal home. OT ADL-Bathing Comments OT Bathing Comments Pt not wanting to shower and states to get tub bench for home use. M5 OT- IP IADL's Start: 02/13/21 17:25 Freq: Status: Active Protocol: Document 02/13/21 17:26 [facility] (Rec: 02/13/21 17:53 [facility] [id number]) OT-Instrumental Activities of Daily Living Home Safety Awareness Home Safety Comments Pt a bit groggy from medications and would be best to to have someone assist with his needs. M6 OT- IP Functional Cognition Start: 02/13/21 17:25 Freq: Status: Active Protocol: Document 02/14/21 11:57 [facility] (Rec: 02/14/21 12:07 [facility] [id number]) Cognitive Factors Limiting Selfcare Function Cognitive Comments Cognitive Assessment Comments Pt still groggy and not able to recall all back precautions . Pt's brother has good safety and understanding to be able to assist pt for all needs. M7 OT- IP Mobility and Balance Start: 02/13/21 17:25 Freq: Status: Active Protocol: Document 02/14/21 11:57 [facility] (Rec: 02/14/21 12:07 [facility] [id number]) OT- Bed Mobility Assessment Supine to Sit Supine to Sit Assist Minimal Assistance Sit to Supine Sit to Supine Assist Minimal Assistance OT-Transfer Assessment Sit to and From Stand Sit to and from Stand Contact Guard Assistance,1 Person Assistance Technique Transfer Destination Bed,Chair Transfer Technique Stand Step Pivot Devices Transfer Assistive Devices Gait Belt,Front Wheeled Walker Comments Mobility Comments Overall much improved and pt's brother able to assist pt for all mobility needs with good safety. OT- Gait Assessment Comments Gait Ability Comments CGA with FWW. OT- Balance Assessment Sitting Balance and Reactions Static Sitting Balance Ability Good Dynamic Sitting Balance Ability Good Standing Balance and Reactions Static Standing Balance Ability Fair M8 OT- IP Objective Assessments Start: 02/13/21 17:25 Freq: Status: Active Protocol: Document 02/13/21 17:26 [facility] (Rec: 02/13/21 17:53 [facility] [id number]) OT Gross Range of Motion Upper Extremity Range of Motion Assessment Within Functional Limits OT Strength Upper Extremity Strength Assessment Within Functional Limits OT-Muscle Tone Assessment Muscle Tone WNL Yes M9 OT- IP Assessment and Plan Start: 02/13/21 17:25 Freq: Status: Active Protocol: Document 02/14/21 11:57 [facility] (Rec: 02/14/21 12:07 [facility] [id number]) OT Summary Assessment and Plan Potential Rehabilitation Potential Good Analytic Complexity at Evaluation Low Summary OT Impairments Pain,Balance,Functional Cognition,Functional Mobility, Grooming,Dressing,Toileting, Bathing,Toilet Transfers, Shower Transfers,Activity Tolerance Progress Towards Goals Progressing Toward Goals,Slow Progress due to Cognition Assessment Summary Pt's brother present for caregiver training and able to safely assist for all ADl and mobility needs. Pt looking to borrow a tub bench for home use. Educated that his brother may have to assist for pericare needs after bowel movement or to obtain a toilet paper Aid. Pt looking to go home with his brother when medically stable. Goals Self-Feeding Goal Independent Grooming Goal Independent Dressing Goal Independent Toileting Goal Independent Bathing Goal Independent Toilet Transfer Goal Independent Shower Transfer Goal Independent Days to Meet Goals 7 Frequency of Treatment Frequency Of Treatment Once a Day Treatment Plan OT Treatment Plan ADL Training,Functional Cognition Training,Functional Mobility,Patient/Family Education,Discharge Planning Other Treatment Recommendations and Next shower if pt still here Treatment Focus Discharge Recommendations OT Discharge Recommendations Home with 07/12 Assist Available Home Equipment Needs tub bench Transportation Needs at Discharge Private Vehicle
[2021-02-14 12:00] VITALS: BP 115/75; PULSE 87; RESP 17; TEMP 36.6; O2SAT 96
--- NOTE | 2021-02-14 13:50 | PM.DS.1 ---
History of Present Illness History of Present Illness Date Patient Seen: 02/14/21 Time Patient Seen: 13:50 Chief complaint: Low back pain status post lumbar fusion Narrative: Please see prior HPI and exam from today in progress notes Discharge Providers Provider Date of admission: 02/12/21 06:20 Discharge Date: 02/14/21 Primary care physician: Ivis Mesa DO Consults: 02/12/21 13:48 Consult to Occupational Therapy Evaluate & Treat Comment: Physician Instructions: Evaluate and treat Consult to Physical Therapy Evaluate & Treat Comment: Physician Instructions: Evaluate and Treat Discharge provider: Katharine Dorsey PA-C Summary Hospital Course Discharge Diagnosis: ?1. L3-4, L4-5 spinal stenosis 2. L3-4, L4-5 spondylosis with radiculopathy Hospital Course: Procedure: 1. LL3-4, L4-5 Postero-lateral and posterior interbody fusion 2. L3-4, L4-5 interbody cage placement. 3. L3-4, L4-5 decompressive laminectomy with bilateral facetecomies 4. L3-4, L4-5 Posterior segmental instrumentation 5. [place] of bone marrow from iliac crest 6. Utilization of microsurgical technique and operating microscope 7. Robotic navigation assisted surgery Same procedure as scheduled: Yes Indications: Patient has been having chronic back pain and worsening lumbar radiculopathy. Patient failed multiple conservative management with worsening pain weakness and numbness in her lower extremity.? Patient has been having difficulty performing activity of daily living.? After discussing risks benefits of treatment options, patient elected proceed with surgery. Surgeon: Yeny Wayne Modular Set Crew Member: Thien Emanuel Click Yes if Unassisted: No Anesthesia Type: General Operative Notes Closure Type: primary Specimen(s): none sent Prosthetic devices, grafts, tissues, transplants, or devices: Globus CREO MIS screws, Rise cages Applied: catheter Estimated Blood Loss (mL): 100 Blood products transfused: none Status at Discharge Cognitive/behavioral status at discharge: oriented Functional status at discharge: uses cane/walker Overall status at discharge: patient is progressing back to baseline Exam Vital Signs (past 8 hours): - 02/14/21 08:00 02/14/21 12:00 Temperature 98.1 F 97.8 F Pulse Rate 88 87 Respiratory Rate 19 17 Blood Pressure 110/73 115/75 Pulse Oximetry 95 96 Oxygen Delivery Method Nasal Cannula Oxygen Flow Rate 0 Narrative Exam Narrative: Please refer to prior progress note from today Objective Labs Result Diagrams: 02/13/21 05:20 PFS Medical History Alcoholism CAD (coronary artery disease) Depression Diabetes mellitus, type 2 Diabetic retinopathy Former smoker Hearing impaired History of tremor HLD (hyperlipidemia) HTN (hypertension) Irregular heart rhythm Loss of vision NSTEMI (non-ST elevated myocardial infarction) (2018) Osteoarthritis of spine Radiculopathy Spinal stenosis of lumbar region at multiple levels Substance abuse Surgical History History of back surgery Hx of heart artery stent (2018) Hx of tonsillectomy Social History household members: none Smoking Status: Former smoker alcohol intake: former Discharge Assessment & Plan Assessment and Plan Assessment: Stable status post lumbar fusion Plan of Treatment: Discharge home today with brother when cleared by Physical therapy and voiding. Limit bending, lifting, twisting Weightbearing as tolerated with front wheel walker Follow-up with Dr. Wayne in 10-14 days for postoperative visit Discharge Plan Discharge Plan Patient Disposition: Home Discharge orders & Medications Prescriptions: New acetaminophen 500 mg capsule 500 mg PO Q4H MDD Max 6 tabs a day PRN (Reason: Pain, Mild (1-3)) Qty: 90 RF: 0 docusate sodium 100 mg Capsule 100 mg PO BID PRN (Reason: Constipation from narcotic pain meds) Qty: 20 RF: 0 hydroxyzine pamoate 25 mg Capsule 25 mg PO Q8H PRN (Reason: Muscle spasms, nausea and vomiting) Qty: 14 RF: 0 oxycodone 5 mg Tablet See Rx Instructions .ROUTE .COMPLEX PRN (Reason: Pain, Severe (7-10)) Qty: 42 RF: 0 Continued atorvastatin 80 mg Tablet 80 mg PO BEDTIME RF: 0 diphenhydramine HCl 50 mg Capsule 100 mg PO BEDTIME PRN (Reason: Sleep) RF: 0 aspirin 81 mg Tablet,Delayed Release (Dr/Ec) 81 mg PO DAILY RF: 0 metformin 1,000 mg Tablet 1,000 mg PO BID RF: 0 metoprolol tartrate 25 mg Tablet 12.5 mg PO BID RF: 0 naproxen sodium [Aleve] 220 mg Capsule 440 mg PO DAILY PRN (Reason: Pain) RF: 0 Discontinued acetaminophen 500 mg Tablet 500 mg PO DAILY PRN (Reason: Pain) RF: 0 Follow up/Referrals: Ivis Mesa DO [Primary Care Provider] - Yeny Wayne MD [Physician] - (10-14 days for postoperative visit) Diet/Activity/Treatments Diet: Diet as Tolerated and Regular Activity: Limit bending, lifting, twisting Weightbearing as tolerated with front wheel walker Cold/Heat Therapy: Use ice as needed for pain Other treatments: Use Tylenol 500 mg every 4 hours for pain. add oxycodone 1-2 tablets every 4 hours as needed for moderate to severe pain Skin/Wound/Dressing Care Report to your healthcare provider any signs of infection, such as:: chills, fever, night sweats, unusual drainage and unusual redness Dressing: Keep dressing dry. Call office if dressing becomes wet, soiled, saturated Visit Report/Discharge Packet Instructions: DI for Prescription Opioid Use, DI for Transforaminal Lumbar Interbody Fusion Stand Alone Forms: Surgery Discharge Discharge Data Primary Care Provider: Ivis Mesa Quality VTE Deep Vein Thrombosis/Pulmonary Embolism Present on Admission: No
--- NOTE | 2021-02-14 14:48 | PC.NURSE ---
Pt A&Ox3. This a.m. c/o pain but reports last night had an episode of pain and felt the pain medication took a very long time to work. Pt given prn IV dialuded 0.5mg with good effect this a.m and able to tolerate breakfast. RN premedicated pt an hour prior to ocular care technician training session with the brother scheduled at 1100 a.m. Per PT/OT patient tolerated the session well and pt was cleared from their stand point for transfer home with his brother this afternoon. Sandoval catheter was dc'd at 1130 a.m. PA notified this afternoon of pt clearing PT/OT session for discharge home with his brother, however pt has not voided as of yet. Will endorse to oncoming shift that patient may d/c home pending ability to void today. Due to void by 7 p.m.
--- NOTE | 2021-02-14 15:38 | PC.NURSE ---
At 1500 pt voiding in the bathroom without difficulty and cleared for discharge. He and brother acknowledge and aggree with discharge plan, activity, site care, follow up instructions, s/sx of infection or worsening symptoms. Reviewed instructions and meds escribed to [facility].pt escorted via w/chair by JESSIE to private vehicle with brother with all of his belongings at 1530.
== END 2021-02-14 15:30 | disposition home or self-care (01) | DRG 455 ==
LOC: OR 06:23 → AC 09:13
PROVIDERS: Admitting Provider Orthopaedic Surgery Orthopaedic Surgery of the Spine; PCP Student in an Organized Health Care Education/Training Program; Referring Provider Orthopaedic Surgery Orthopaedic Surgery of the Spine; Visit Provider Orthopaedic Surgery Orthopaedic Surgery of the Spine
PROC: 0SG10AJ Fusion of 2 or more Lumbar Vertebral Joints with Interbody Fusion Device, Posterior Approach, Anterior Column, Open Approach (ICD-10-PCS; principal; 2021-02-12 07:45)
DX: M47.26 Other spondylosis with radiculopathy, lumbar region (principal); M48.061 Spinal stenosis, lumbar region without neurogenic claudication; I25.10 Atherosclerotic heart disease of native coronary artery without angina pectoris; E11.9 Type 2 diabetes mellitus without complications; I10 Essential (primary) hypertension; E78.5 Hyperlipidemia, unspecified; G89.18 Other acute postprocedural pain; Z20.822 Contact with and (suspected) exposure to COVID-19; Z87.891 Personal history of nicotine dependence; Z95.5 Presence of coronary angioplasty implant and graft; Z79.84 Long term (current) use of oral hypoglycemic drugs; Z23 Encounter for immunization
CPT/HCPCS: 72100; 76000; 82962; 85014; 85018; 87635; 90471; 90662; 97116; 97162; 97165; 97530; 97535; C1776; C9803; C9290; J0171; J0330; J0690; J1170; J2060; J2250; J2405; J2704; J3010